=== PATIENT | male | born 1995 | race Two or more races ===

== ENCOUNTER 2020-03-31 20:08 | Emergency (ER) | payer OTHER, SELFPAY ==
[~2020-03-31] VITALS: Ht 175.3 cm; Wt 90.7 kg
[2020-03-31 20:13] VITALS: BP 127/86
== END 2020-03-31 21:30 | disposition home or self-care (01) ==
LOC: ER 20:10
DX: U07.1 COVID-19 (principal)
CPT/HCPCS: 71045